=== PATIENT | male | born 1970 | race American Indian/Alaskan Native ===

== ENCOUNTER 2018-05-29 15:53 | Emergency (ER) | payer OTHER ==
[2018-05-29 16:20] LABS: Bilirubin,Urine NEG (Negative); Blood,Urine NEG (Negative); Color,Urine Yellow (Yellow); Mucus,Urine FEW /HPF; Protein,Urine <15 mg/dL mg/dL (Negative); Urobilinogen,Urine < 2.0 mg/dL (<2.0)
--- NOTE | 2018-05-29 17:05 | Emergency Department Report ---
ED Male HPI - General Chief complaint: Urogenital-Male Stated complaint: BLOOD IN URINE Time Seen by Provider: 05/29/18 16:23 Source: patient Mode of arrival: Ambulatory Limitations: No Limitations - History of Present Illness Initial comments: 47-year-old male past medical history obesity, inguinal hernia correction presents with complaint of single episode of gross painless hematuria. Patient states that he urinated earlier today and noticed that there appeared to be blood in his urine. Only one episode reported by patient. Patient denies any recent or current abdominal trauma flank trauma falls or groin/genital trauma. Patient denies fevers or chills. Denies nausea or vomiting. States he may have had slight left-sided flank pain earlier which has since subsided. Has no current pain or symptoms. States he has urinated several times since this one episode and has not experienced hematuria again. Patient denies any personal history of kidney stones. Denies smoking drinking or any drug use whatsoever. Denies excessive consumption of energy drinks. Denies any cocaine use. Denies any fevers or chills. Denies any rectal pain or penile discharge or testicular pain or swelling. MD Complaint: other (episode of painless hematuria earlier today) -: This morning blood in urine - Related Data Allergies Allergy/AdvReac Type Severity Reaction Status Date / Time No Known Allergies Allergy Unverified 05/29/18 16:09 ED Review of Systems ROS: Stated complaint: BLOOD IN URINE Other details as noted in HPI Constitutional: denies: chills, fever Eyes: denies: eye pain, eye discharge, vision change ENT: denies: ear pain, throat pain Respiratory: denies: cough, shortness of breath, wheezing Cardiovascular: denies: chest pain, palpitations Endocrine: no symptoms reported Gastrointestinal: denies: abdominal pain, nausea, diarrhea Genitourinary: hematuria (1 episode of hematuria earlier today). denies: urgency, dysuria Musculoskeletal: denies: back pain, joint swelling, arthralgia Skin: denies: rash, lesions Neurological: denies: headache, weakness, paresthesias Psychiatric: denies: anxiety, depression Hematological/Lymphatic: denies: easy bleeding, easy bruising ED Past Medical Hx - Past Medical History Previous Medical History?: No - Surgical History Past Surgical History?: No - Social History Smoking Status: Never Smoker Substance Use Type: None ED Physical Exam - General Limitations: No Limitations General appearance: alert, in no apparent distress - Head Head exam: Present: atraumatic, normocephalic - Eye Eye exam: Present: normal appearance - ENT ENT exam: Present: mucous membranes moist - Neck Neck exam: Present: normal inspection - Respiratory Respiratory exam: Present: normal lung sounds bilaterally. Absent: respiratory distress - Cardiovascular Cardiovascular Exam: Present: regular rate, normal rhythm. Absent: systolic murmur, diastolic murmur, rubs, gallop - GI/Abdominal GI/Abdominal exam: Present: soft, normal bowel sounds - Rectal Rectal exam: Present: deferred - Extremities Exam Extremities exam: Present: normal inspection - Back Exam Back exam: Present: normal inspection, full ROM (patient has no flank tenderness on percussion bilaterally) - Neurological Exam Neurological exam: Present: alert, oriented X3, CN II-XII intact, normal gait - Psychiatric Psychiatric exam: Present: normal affect, normal mood - Skin Skin exam: Present: warm, dry, intact, normal color. Absent: rash ED Course Vital Signs 05/29/18 16:06 Temperature 98.7 F Pulse Rate 85 Respiratory 16 Rate Blood Pressure 148/98 O2 Sat by Pulse 98 Oximetry ED Medical Decision Making - Lab Data Result diagrams: 05/29/18 17:11 05/29/18 17:11 - Medical Decision Making A/P: One episode of painless hematuria 1-patient's renal function is normal. CBC unremarkable, H&H is normal 2-mild elevation in CK, CK is 486. I advised patient to remain well-hydrated. Patient has no clinical signs and symptoms of rhabdomyolysis on exam urinalysis shows no blood , nitrites leukocytes or bacteria or protein at this time. 3-I advised patient to follow up with primary care and urology. Patient states he follows up at [facility] 4- vital signs stable for discharge. I advised patient if he develops fevers chills severe persistent flank pain or suprapubic pain with associated nausea and vomiting to return to the ED for evaluation. Critical care attestation.: If time is entered above; I have spent that time in minutes in the direct care of this critically ill patient, excluding procedure time. ED Disposition Clinical Impression: Hematuria Qualifiers: Hematuria type: unspecified type Qualified Code(s): R31.9 - Hematuria, unspecified Disposition: - TO HOME OR SELFCARE Is pt being admited?: No Does the pt Need Aspirin: No Condition: Stable Instructions: Acute Hematuria (ED) Referrals: [email or web address] [Provider Group] - 3-5 Days Time of Disposition: 18:29
--- NOTE | 2018-05-29 17:29 | Cat Scan Report ---
FINAL REPORT PROCEDURE: CT ABDOMEN PELVIS WO CON TECHNIQUE: Computerized axial tomography of the abdomen and pelvis was performed without intravenous contrast. This study is performed without intravascular contrast material and its sensitivity for abdominal and pelvic pathology, including neoplasms, inflammation, abscess, free fluid, thrombosis, arterial dissection and infarction, is reduced compared with a contrast enhanced study. HISTORY: left sided flank pain w/ hematuria ? renal stone COMPARISON: No prior studies are available for comparison. FINDINGS: Lower Lung real: Small amount of dependent atelectasis visualized. Lung bases otherwise are clear. Upper Abdomen: Liver density is diffusely decreased consistent with fatty infiltration. No discrete liver lesions are identified. The gallbladder appears normal. The adrenal glands, the pancreas and the spleen are unremarkable. Kidneys, Ureters and Urinary bladder: No abnormalities are seen. No renal masses or renal calculi are visualized. There is no hydronephrosis. The ureters are not distended. No ureteral calculi are visualized. The urinary bladder is unremarkable. Calcifications seen in the lower pelvis appear to represent phleboliths. Retroperitoneum: Abdominal aorta appears normal. No evidence of aneurysm. Nonspecific subcentimeter lymph nodes are seen in the retroperitoneum. No pathologically enlarged lymph nodes are identified. Bowel: Bowel loops are unremarkable. No evidence of bowel obstruction or ascites. There is no free intraperitoneal gas. Normal-appearing appendix is seen in the right lower quadrant. Reproductive organs: Prostate gland does not appear to be enlarged. Other: No acute bony abnormalities are seen. There is moderate-sized umbilical hernia containing adipose tissue. The herniated adipose tissue is mildly inflamed. There is also a moderate size periumbilical hernia containing additional adipose tissue. No herniated loops of bowel are seen. IMPRESSION: Fatty infiltration of the liver. No acute abnormalities are identified. No evidence of renal or ureteral calculi. Kidneys are unremarkable.. Umbilical hernia and periumbilical hernia as described containing a moderate amount of adipose tissue. The umbilical hernia adipose tissue is mildly inflamed or edematous. No herniated loops of bowel are seen.
[2018-05-29 17:30] LABS: Basophils % (Auto) 0.5 % (0.0-1.8); Eosinophils # (Auto) 0.1 K/mm3 (0.0-0.4); Eosinophils % (Auto) 1.9 % (0.0-4.3); Hematocrit 44.4 % (35.5-45.6); Lymphocytes # (Auto) 2.2 K/mm3 (1.2-5.4); Lymphocytes % (Auto) 31.6 % (13.4-35.0); Mean Corpuscular HGB Conc 34 % (32-34); Mean Corpuscular Hemoglobin 29 pg (28-32); Mean Corpuscular Volume 87 fl (84-94); Monocytes # (Auto) 0.4 K/mm3 (0.0-0.8); Monocytes % (Auto) 6.3 % (0.0-7.3); Platelet Count 204 K/mm3 (140-440); Red Blood Count 5.11 M/mm3 (3.65-5.03); Red Cell Distribution Width 14.1 % (13.2-15.2)
[2018-05-29 18:09] LABS: BUN/Creatinine Ratio 10; Blood Urea Nitrogen 11 mg/dL (9-20); Calcium 9.3 mg/dL (8.4-10.2); Hemolysis Index 39
[2018-05-29 18:43] VITALS: BP 142/77
== END 2018-05-29 18:41 | disposition home or self-care (01) ==
LOC: ED 15:53
DX: R31.9 Hematuria, unspecified (principal)
CPT/HCPCS: 36415; 74176; 80048; 81001; 82550; 85025